=== PATIENT | male | born 1970 | race Caucasian/White ===

== ENCOUNTER → 2018-01-15 | Outpatient (CLI) | payer BC | LOC: M WUC 09:16 | DX: R05 Cough (principal) | CPT/HCPCS: 71046 ==

== ENCOUNTER → 2018-09-04 | Outpatient (CLI) | payer BC | LOC: M WUC 17:07 | DX: S33.5XXA Sprain of ligaments of lumbar spine, initial encounter (principal); X58.XXXA Exposure to other specified factors, initial encounter; Y92.9 Unspecified place or not applicable | CPT/HCPCS: 72110 ==

== ENCOUNTER 2018-09-28 08:08 | Day surgery (SDC) | payer BC ==
[~2018-09-28] VITALS: Ht 195.6 cm; Wt 90.3 kg
[~2018-09-28 08:08] MED LIST: ALPR0.25 PO; BUPR1TAB53 PO; VITA2000 PO; VITA500C24 PO
[2018-09-28] MEDS ORDERED: PROPOFOL 200 MG/20 ML VIAL As Ordered ONE ×2 (09:49→10:22)
[2018-09-28] MEDS ORDERED: LIDOCAINE 2% INJ 100 MG/5 ML SDV (FOR ANES.) As Ordered ONE (09:49)
[2018-09-28] MEDS ORDERED: NS 1,000 ML IV ONE (10:30)
--- NOTE | 2018-09-28 10:39 | ROOR ---
Patient Name: Yariel Mathews Procedure Date: 09/28/2018 10:12 AM Date of : 1970 Age: 48 Room: [facility] Gender: Male Note Status: Finalized Procedure: Colonoscopy Indications: Screening for colorectal malignant neoplasm Providers: Liam ANSARI MD Referring MD: FAINA VERGARA MD Requesting Provider: Medicines: Monitored Anesthesia Care Complications: No immediate complications. Procedure: Pre-Anesthesia Assessment: - The heart rate, respiratory rate, oxygen saturations, blood pressure, adequacy of pulmonary ventilation, and response to care were monitored throughout the procedure. The Colonoscope was introduced through the anus and advanced to the cecum, identified by appendiceal orifice and ileocecal valve. The colonoscopy was performed without difficulty. The patient tolerated the procedure well. The quality of the bowel preparation was fair. Findings: The perianal and digital rectal examinations were normal. A 4 mm polyp was found in the hepatic flexure. The polyp was sessile. The polyp was removed with a cold snare. Resection and retrieval were complete. Internal hemorrhoids were found during retroflexion. The hemorrhoids were medium-sized. The exam was otherwise without abnormality on direct and retroflexion views. Impression: - Preparation of the colon was fair. - One 4 mm polyp at the hepatic flexure, removed with a cold snare. Resected and retrieved. - Internal hemorrhoids. - The examination was otherwise normal on direct and retroflexion views. Recommendation: - Repeat colonoscopy in 1-2 year because the bowel preparation was suboptimal. Liam Ansari MD Liam ANSARI MD 09/28/2018 10:39:10 AM This report has been signed electronically. Number of Addenda: 0 Note Initiated On: 09/28/2018 10:12 AM Estimated Blood Loss: Estimated blood loss: none.
[2018-09-28 11:00] VITALS: BP 123/90
== END 2018-09-28 11:12 | disposition home or self-care (01) ==
LOC: M OPP 08:08
PROVIDERS: ATTEND Internal Medicine Gastroenterology
DX: Z12.11 Encounter for screening for malignant neoplasm of colon (principal); K64.8 Other hemorrhoids; D12.3 Benign neoplasm of transverse colon; F32.9 Major depressive disorder, single episode, unspecified; F41.9 Anxiety disorder, unspecified; Z79.899 Other long term (current) drug therapy; Z87.891 Personal history of nicotine dependence

== ENCOUNTER → 2020-10-30 | Outpatient (CLI) | payer BC | LOC: M LABSMTC 13:59 | PROVIDERS: ATTEND Pediatrics | DX: Z20.822 Contact with and (suspected) exposure to COVID-19 (principal) ==

== ENCOUNTER 2023-08-08 06:50 | Day surgery (SDC) | payer BC ==
[~2023-08-08] VITALS: Ht 193 cm; Wt 88.6 kg
[~2023-08-08 06:50] MED LIST changes: +NS 1,000 ML IV ONE; +VITA200012 PO
[2023-08-08] MEDS ORDERED: propofoL 200 MG/20 ML VIAL As Ordered ONE (07:14)
[2023-08-08] MEDS ORDERED: LIDOCAINE 2% 100MG/5ML SDV (FOR ANES.) As Ordered ONE (07:14)
[2023-08-08 09:07] VITALS: BP 119/76; TEMP 97.3; O2SAT 97
== END 2023-08-08 09:00 | disposition home or self-care (01) ==
LOC: M OPP 06:50
PROVIDERS: ATTEND Internal Medicine Gastroenterology
DX: Z12.11 Encounter for screening for malignant neoplasm of colon (principal); Z86.010 Personal history of colon polyps; K63.5 Polyp of colon; K64.8 Other hemorrhoids; Z79.52 Long term (current) use of systemic steroids; Z79.899 Other long term (current) drug therapy; Z87.891 Personal history of nicotine dependence